=== PATIENT | female | born 1950 | race Caucasian/White ===

== ENCOUNTER 2017-06-10 11:00 | Outpatient (CLI) | payer MEDICARE, BC | END 2017-06-10 11:01 | disposition home or self-care (01) | LOC: BICRAD 11:00 | PROVIDERS: ATTEND Family Medicine | DX: M25.572 Pain in left ankle and joints of left foot (principal); M79.89 Other specified soft tissue disorders ==

== ENCOUNTER 2019-03-12 17:15 | Emergency (ER) | payer MEDICARE, BC ==
--- NOTE | 2019-03-12 18:24 | ULT ---
LEFT LOWER EXTREMITY VENOUS ULTRASOUND WITH DOPPLER: COMPARISON: 11/21/2014 HISTORY: Pain. Past medical history of DVT TECHNIQUE: Grayscale, color flow, Doppler imaging and spectral wave muscle performed left lower extre mity venous system FINDINGS: There is compressibility, presence of flow and augmentation in the common femoral vein, femoral vein and popliteal vein. Flow the greater saphenous vein and profunda femoral vein. Flow in the posterior tibial vein. In the region of pain, there is no evidence of mass, fluid collection, or lymphadenopathy. A superfic ial vein, with patency and flow is noted in the region of pain. IMPRESSION: No evidence of thrombus in the left lower extremity deep venous system. Transcribed Date/Time: 03/12/2019 7:04 PM
== END 2019-03-12 18:32 | disposition home or self-care (01) ==
LOC: ERS 17:15
DX: M79.652 Pain in left thigh (principal); E11.9 Type 2 diabetes mellitus without complications; E78.5 Hyperlipidemia, unspecified; F32.9 Major depressive disorder, single episode, unspecified; Z79.899 Other long term (current) drug therapy; Z79.4 Long term (current) use of insulin

== ENCOUNTER 2021-09-16 11:23 | Outpatient (CLI) | payer MEDICARE, OTHER | END 2021-09-16 11:24 | disposition home or self-care (01) | LOC: BICMAMMO 11:23 | PROVIDERS: ATTEND Family Medicine | DX: Z12.31 Encounter for screening mammogram for malignant neoplasm of breast (principal); N64.89 Other specified disorders of breast | CPT/HCPCS: 77063; 77067 ==

== ENCOUNTER 2021-09-23 13:04 | Outpatient (CLI) | payer MEDICARE, OTHER | END 2021-09-23 13:05 | disposition home or self-care (01) | LOC: BICMAMMO 13:04 | PROVIDERS: ATTEND Family Medicine | DX: N64.89 Other specified disorders of breast (principal) | CPT/HCPCS: 76642; 77065; G0279 ==

== ENCOUNTER → 2023-04-20 | Day surgery (SDC) | payer MEDICARE, OTHER ==
[~2023-04-20] MED LIST: Oxymetazoline HCl 0.05% (30 ML BOT) ONE
== END ==
LOC: SDC 13:53
PROVIDERS: ATTEND Internal Medicine Gastroenterology
PROC: 4A0B88Z Measurement of Gastrointestinal Motility, Via Natural or Artificial Opening Endoscopic (ICD-10-PCS; principal; 2023-04-20)
DX: K44.9 Diaphragmatic hernia without obstruction or gangrene (principal); K21.9 Gastro-esophageal reflux disease without esophagitis; I10 Essential (primary) hypertension; E03.9 Hypothyroidism, unspecified; E11.9 Type 2 diabetes mellitus without complications; F32.A Depression, unspecified; Z88.1 Allergy status to other antibiotic agents; Z88.2 Allergy status to sulfonamides; Z91.040 Latex allergy status; Z91.041 Radiographic dye allergy status; Z91.048 Other nonmedicinal substance allergy status; Z96.653 Presence of artificial knee joint, bilateral; Z90.89 Acquired absence of other organs; Z79.4 Long term (current) use of insulin; Z79.899 Other long term (current) drug therapy
CPT/HCPCS: 91010

== ENCOUNTER 2023-05-18 10:54 | Day surgery (SDC) | payer MEDICARE, OTHER ==
[2023-05-14 09:50] VITALS: BMI 29.0
[2023-05-18] MEDS ORDERED: Fleet Saline Enema 133 ML BOT PR SCH (11:45)
[2023-05-18] MEDS ORDERED: Fleet Saline Enema 133 ML BOT FS SCH (11:45)
[2023-05-18] MEDS ORDERED: Lidocaine 1% PF 5 ML VIAL ONE (14:04)
[2023-05-18] MEDS ORDERED: PROPOFOL 200 MG/20 ML VIAL ONE (14:04)
== END 2023-05-18 15:20 | disposition home or self-care (01) ==
LOC: SDC 10:54
PROVIDERS: ATTEND Internal Medicine Gastroenterology
PROC: 0DJD8ZZ Inspection of Lower Intestinal Tract, Via Natural or Artificial Opening Endoscopic (ICD-10-PCS; principal; 2023-05-18)
DX: Q43.8 Other specified congenital malformations of intestine (principal); K64.8 Other hemorrhoids; N18.30 Chronic kidney disease, stage 3 unspecified; I12.9 Hypertensive chronic kidney disease with stage 1 through stage 4 chronic kidney disease, or unspecified chronic kidney disease; K21.9 Gastro-esophageal reflux disease without esophagitis; E03.9 Hypothyroidism, unspecified; M19.90 Unspecified osteoarthritis, unspecified site; E11.22 Type 2 diabetes mellitus with diabetic chronic kidney disease; E07.9 Disorder of thyroid, unspecified; K58.0 Irritable bowel syndrome with diarrhea; E78.2 Mixed hyperlipidemia; F33.42 Major depressive disorder, recurrent, in full remission; Z79.4 Long term (current) use of insulin; Z96.659 Presence of unspecified artificial knee joint; Z98.51 Tubal ligation status; Z98.49 Cataract extraction status, unspecified eye; Z98.890 Other specified postprocedural states; Z79.01 Long term (current) use of anticoagulants; Z79.890 Hormone replacement therapy; Z79.899 Other long term (current) drug therapy; Z91.040 Latex allergy status; Z91.041 Radiographic dye allergy status; Z88.1 Allergy status to other antibiotic agents; Z88.8 Allergy status to other drugs, medicaments and biological substances; Z91.048 Other nonmedicinal substance allergy status
CPT/HCPCS: 82962; G0105; 36416; J2704

== ENCOUNTER 2023-10-27 13:31 | Outpatient (CLI) | payer MEDICARE, OTHER | END 2023-10-27 13:32 | disposition home or self-care (01) | LOC: BICMAMMO 13:31 | PROVIDERS: ATTEND Family Medicine | DX: Z13.820 Encounter for screening for osteoporosis (principal); M85.851 Other specified disorders of bone density and structure, right thigh; M85.852 Other specified disorders of bone density and structure, left thigh; Z78.0 Asymptomatic menopausal state | CPT/HCPCS: 77080 ==

== ENCOUNTER 2024-04-26 12:57 | Outpatient (CLI) | payer MEDICARE, OTHER | END 2024-04-26 12:58 | disposition home or self-care (01) | LOC: SCSMRI 12:57 | PROVIDERS: ATTEND Family Medicine | DX: M50.11 Cervical disc disorder with radiculopathy, high cervical region (principal); M54.6 Pain in thoracic spine; M50.121 Cervical disc disorder at C4-C5 level with radiculopathy; M50.122 Cervical disc disorder at C5-C6 level with radiculopathy; M50.33 Other cervical disc degeneration, cervicothoracic region | CPT/HCPCS: 72141 ==

== ENCOUNTER 2024-06-27 15:27 | Outpatient (CLI) | payer MEDICARE, OTHER | END 2024-06-27 15:28 | disposition home or self-care (01) | LOC: BICRAD 15:27 | PROVIDERS: ATTEND Orthopaedic Surgery | DX: M54.2 Cervicalgia (principal); M47.812 Spondylosis without myelopathy or radiculopathy, cervical region; Z98.1 Arthrodesis status | CPT/HCPCS: 72040 ==

== ENCOUNTER 2024-07-04 11:25 | Outpatient (CLI) | payer MEDICARE, OTHER ==
[2024-07-04 15:17] LABS: #Basophils 0.04 10x3/uL (0.0-0.2); %Basophils 0.6 % (0.0-1.0); %Eosinophils 4.6 % (0.0-10.0); %Lymphocytes 37.5 % (21.0-51.0); Hematocrit 39.1 % (36.0-47.0); Hemoglobin 12.7 g/dL (12.0-16.0); Mean Corpuscular HGB CONC 32.5 g/dL (32.0-36.0); Mean Corpuscular Hemoglobin 31.7 pg (27.0-31.0); Mean Corpuscular Volume 97.5 fL (78.0-98.0); Mean Platelet Volume 10.8 fL (7.4-10.4); Platelet Count 521 10x3/uL (130-400); RBC Distribution Width 12.9 % (11.5-14.5); Red Blood Cell (RBC) Count 4.01 mill/uL (4.20-5.40)
[2024-07-04 15:29] LABS: Chloride 106 mmol/L (98-107); Potassium 4.1 mmol/L (3.5-5.1); Sodium 142 mmol/L (136-145)
[2024-07-04 15:32] LABS: PTT 28.9 sec (22.9-36.1); Prothrombin Time 13.5 sec (12.0-14.7)
[2024-07-04 15:56] LABS: Hemoglobin A1c 6.5 % (4.0-6.0)
[2024-07-04 16:35] LABS: Anion Gap 17 mmol/L (10-20); BUN (Urea Nitrogen) 19 mg/dL (9.8-20.1); Calc. Creatinine Clearance 0 mL/min (70-130); Carbon Dioxide 23 mmol/L (23-31); Estimated GFR 48; Glucose 67 mg/dL (83-110)
== END 2024-07-04 11:26 | disposition home or self-care (01) ==
LOC: LABBT 11:25
PROVIDERS: ATTEND Orthopaedic Surgery
DX: Z01.812 Encounter for preprocedural laboratory examination (principal); M54.12 Radiculopathy, cervical region
CPT/HCPCS: 80048; 83036; 85025; 85610; 85730; 86850; 86900; 86901

== ENCOUNTER 2025-01-17 10:21 | Outpatient (CLI) | payer MEDICARE, OTHER | END 2025-01-17 10:22 | disposition home or self-care (01) | LOC: BICRAD 10:21 | PROVIDERS: ATTEND Orthopaedic Surgery | DX: M54.2 Cervicalgia (principal); Z98.890 Other specified postprocedural states | CPT/HCPCS: 72040 ==